=== PATIENT | female | born 1975 | race Caucasian/White ===

== ENCOUNTER → 2019-04-23 | Outpatient (REF) | payer OTHER ==
[2019-04-23 16:47] LABS: PLATELET COUNT, AUTOMATED 408 10^3/uL (150-450)
[2019-04-23 16:59] LABS: INR 0.99; PROTHROMBIN TIME 12.8 SECONDS (11.8-14.0)
[2019-04-23 17:00] LABS: PARTIAL THROMBOPLASTIN TIME 28.6 SECONDS (25.0-38.4)
[2019-04-23 17:09] LABS: COLLAGEN EPINEPHRINE 111 SECONDS (74-162)
== END ==
LOC: M LAB REF 16:35
PROVIDERS: ATTEND Physician Assistant
DX: Z01.812 Encounter for preprocedural laboratory examination (principal); M47.817 Spondylosis without myelopathy or radiculopathy, lumbosacral region; M51.27 Other intervertebral disc displacement, lumbosacral region